=== PATIENT | female | born 2000 | race Two or more races ===

== ENCOUNTER 2025-02-08 16:12 | Emergency (ER) | payer SELFPAY ==
[~2025-02-08] VITALS: Ht 154.9 cm; Wt 60.0 kg
[2025-02-08 16:26] VITALS: BP 105/69; PULSE 88; RESP 16; TEMP 97.3; O2SAT 98
[2025-02-08] MEDS: METHOCARBAMOL 500 MG TABLET PO ONE (17:18)
[2025-02-08] MEDS: ACETAMINOPHEN 500 MG TABLET PO ONE (17:18)
[2025-02-08] MEDS: KETOROLAC TROMETHAMINE 30 MG/ML VIAL IM ONE (17:19)
[2025-02-08] MEDS: LIDOCAINE 5% TRANSDERMAL PATCH TD ONE (17:19)
[2025-02-08] MEDS ORDERED: METH-812 PO (18:26)
== END 2025-02-08 18:36 | disposition home or self-care (01) ==
LOC: EMS 16:12
DX: S80.01XA Contusion of right knee, initial encounter (principal); V49.50XA Passenger injured in collision with unspecified motor vehicles in traffic accident, initial encounter; Y93.89 Activity, other specified; Y92.410 Unspecified street and highway as the place of occurrence of the external cause; Y99.8 Other external cause status
CPT/HCPCS: 99284; 73562; 96372; J1885